=== PATIENT | male | born 1990 | race Two or more races ===

== ENCOUNTER 2020-10-03 18:46 | Emergency (ER) | payer MEDICAID, OTHER ==
[~2020-10-03] VITALS: Ht 180.3 cm; Wt 104.3 kg
[2020-10-03] MEDS ORDERED: methylPREDNISolone SOD SUCC 125 MG/2 ML VL IM ONE (21:45)
[2020-10-03] MEDS ORDERED: KETOROLAC TROMETH 60MG/2ML VIAL IM ONE (21:45)
[2020-10-03 21:55] VITALS: BP 112/79
== END 2020-10-03 22:24 | disposition home or self-care (01) ==
LOC: ER 18:48
DX: M26.601 Right temporomandibular joint disorder, unspecified (principal); M26.621 Arthralgia of right temporomandibular joint
CPT/HCPCS: 96372; 99284; J1885; J2930

== ENCOUNTER 2021-03-24 18:18 | Emergency (ER) | payer MEDICAID, OTHER ==
[~2021-03-24] VITALS: Ht 180.3 cm; Wt 108.9 kg
[2021-03-24 22:41] VITALS: BP 141/73
== END 2021-03-24 22:48 | disposition home or self-care (01) ==
LOC: ER 18:21
DX: F32.9 Major depressive disorder, single episode, unspecified (principal)